=== PATIENT | male | born 1975 | race Caucasian/White ===

== ENCOUNTER → 2020-09-20 | Outpatient (CLI) | payer OTHER ==
--- NOTE | 2020-09-20 17:04 | CARD ---
MR#: [id number] Date of Study: 09/20/2020 Ordering Physician: AGUSTIN BUI, Referring Physician: AGUSTIN BUI, Tech: Socorro Cool [facility] APPROVED REPORT EXAM: Two-dimensional and M-mode echocardiogram with Doppler and color Doppler. Other Information Quality : GoodHR: 58bpm Rhythm : NSR INDICATION Dyspnea 2D DIMENSIONS RVDd3.8 (2.9-3.5cm)Left Atrium(2D)4.0 (1.6-4.0cm) IVSd1.0 (0.7-1.1cm)Aortic Root(2D)3.1 (2.0-3.7cm) LVDd5.0 (3.9-5.9cm)LVOT Diameter2.5 (1.8-2.4cm) PWd1.3 (0.7-1.1cm)LVDs4.1 (2.5-4.0cm) FS (%) 18.1 %SV44.4 ml Aortic Valve AoV Peak Yang.119.5cm/sAoV VTI29.7cm AO Peak GR.5.7mmHgLVOT Peak Yang.107.8cm/s AO Mean GR.3mmHgAVA (VMAX)4.31cm2 Mitral Valve MV E Qppmoaac99.9cm/sMV DECEL MSUA065he MV A Yfitzlmv78.7cm/sE/A Ratio1.2 Pulmonary Valve PV Peak Icsquufl191.1cm/s Tricuspid Valve TR P. Mtzlronz486xw/sTR Peak Gr.23mmHg Pulmonary Vein S1 Giflrjxj10.3cm/sD2 Iydqdhpa38.0cm/s PVa [id number] LEFT VENTRICLE The left ventricle is normal size. There is normal left ventricular wall thickness. The left ventricu lar systolic function is low normal. Estimated ejection fraction is estimated at 50%. There is leilani l LV segmental wall motion. The left ventricular diastolic function and filling is normal for age. RIGHT VENTRICLE The right ventricle is normal size. There is normal right ventricular wall thickness. The right ventr icular systolic function is normal. ATRIA The left atrium size is normal. The right atrium size is normal. The interatrial septum is intact wit h no evidence for an atrial septal defect or patent foramen ovale as noted on 2-D or Doppler imaging. AORTIC VALVE The aortic valve is normal in structure and function. Doppler and Color Flow revealed trace to mild a ortic regurgitation. There is no significant aortic valvular stenosis. MITRAL VALVE The mitral valve is normal in structure and function. There is no evidence of mitral valve prolapse. There is no mitral valve stenosis. Doppler and Color-flow revealed trace to mild mitral regurgitation . TRICUSPID VALVE The tricuspid valve is normal in structure and function. Doppler and Color Flow revealed mild tricusp id regurgitation. Estimated PAP 26 mmHg. There is no tricuspid valve stenosis. PULMONIC VALVE The pulmonary valve is normal in structure and function. Doppler and Color Flow revealed no pulmonic valvular regurgitation. GREAT VESSELS The aortic root is normal in size. The ascending aorta is normal in size. The IVC is normal in size a nd collapses >50% with inspiration. PERICARDIAL EFFUSION There is no evidence of significant pericardial effusion. Critical Notification Critical Value: No <Conclusion> The left ventricle is normal size. The left ventricular systolic function is low normal. Estimated ejection fraction is estimated at 50%. Doppler and Color Flow revealed trace to mild aortic regurgitation. There is no significant aortic valvular stenosis. Doppler and Color-flow revealed trace to mild mitral regurgitation. Doppler and Color Flow revealed mild tricuspid regurgitation. Estimated PAP 26 mmHg. Signed by : Leonid Frias MD Electronically Approved : 09/20/2020 17:04:00
== END ==
LOC: ECHO 14:34
PROVIDERS: ATTEND Internal Medicine Cardiovascular Disease
DX: I08.3 Combined rheumatic disorders of mitral, aortic and tricuspid valves (principal); I25.10 Atherosclerotic heart disease of native coronary artery without angina pectoris; R07.9 Chest pain, unspecified
CPT/HCPCS: 93306